=== PATIENT | male | born 1975 | race Caucasian/White ===

== ENCOUNTER 2024-12-25 18:39 | Emergency (ER) | payer OTHER ==
[~2024-12-25] VITALS: Ht 165.1 cm; Wt 70.0 kg
[2024-12-25 18:41] VITALS: O2SAT 97
[2024-12-25] MEDS: SODIUM CHLORIDE 0.9% (SEPSIS BOLUS) IV ONE (19:08)
[2024-12-25] MEDS: DEXTROSE 50% WATER 50ML SYRINGE IV ONE (19:08)
[2024-12-25] MEDS: CEFTRIAXONE 1GM/50ML 50 ML IV ONE (19:12)
[2024-12-25 19:51] LABS: BASOPHILS % 0.6 % (0.0-2.0); EOSINOPHILS % 0.7 % (0.0-5.0); HEMATOCRIT. 34.2 % (42.0-52.0); HEMOGLOBIN. 11.1 g/dL (14.0-18.0); LYMPHOCYTES % 22.3 % (20.0-50.0); MEAN PLATELET VOLUME 8.6 fl (7.4-10.4); MONOCYTES % 13.6 % (2.0-8.0); NEUTROPHILS % 62.8 % (40.0-76.0); PLATELET 185 x1000/uL (130-400); RED BLOOD CELL COUNT 3.67 mill/uL (4.7-6.1); RED CELL DISTRIBUTION WIDTH 17.8 % (11.6-14.6)
[2024-12-25 20:00] LABS: TROPONIN I HIGH SENSITIVITY 8 ng/L (3.0-53)
[2024-12-25 20:01] LABS: CREATININE 3.3 mg/dL (0.6-1.3); UREA NITROGEN BLOOD 75 mg/dL (9-23)
[2024-12-25 20:03] LABS: ASPARTATE AMINOTRANSFERASE 55 IU/L (<34); BILIRUBIN DIRECT 0.2 mg/dL (<=3.0)
[2024-12-25 20:04] LABS: BILIRUBIN TOTAL 0.4 mg/dL (0.1-1.0); PROTEIN TOTAL 5.9 g/dL (6.0-8.3)
[2024-12-25 20:12] LABS: INR 1.0
[2024-12-25] MEDS: ACETAMINOPHEN 325MG TABLET PO ONE (20:50)
[2024-12-25 21:31] LABS: CLARITY URINE CLEAR (CLEAR); COLOR URINE YELLOW (YELLOW); GLUCOSE URINE 3+ (NEGATIVE); KETONES URINE NEGATIVE (NEGATIVE); OCCULT BLOOD URINE NEGATIVE (NEGATIVE); PH URINE 5.5 (4.5-8.0); PROTEIN URINE 2+ (NEGATIVE); SPECIFIC GRAVITY URINE 1.020 (1.005-1.030)
[2024-12-25 21:32] LABS: LEUKOCYTE ESTERASE URINE NEGATIVE (NEGATIVE); NITRITE URINE NEGATIVE (NEGATIVE); UROBILINOGEN URINE 0.2 E.U./dL (0.2-1.0)
[2024-12-25 21:41] LABS: TROPONIN I HIGH SENSITIVITY 8 ng/L (3.0-53)
[2024-12-25 21:44] LABS: BACTERIA URINE 1+; RBC URINE NONE SEEN /hpf (0-2); SQUAMOUS EPITHELIAL CELL URINE RARE /lpf (RARE/1+); WBC URINE 0-2 /hpf (0-2)
[2024-12-26 00:13] VITALS: BP 115/73; PULSE 79; RESP 19; TEMP 36.8; O2SAT 97
== END 2024-12-26 00:28 | disposition short-term general hospital (02) ==
LOC: ER 18:39 → EDBEDREQ 18:55 → ER 12-26 00:28 → CMPBEDREQ 12-26 19:33
DX: N17.9 Acute kidney failure, unspecified (principal); E11.649 Type 2 diabetes mellitus with hypoglycemia without coma; R07.9 Chest pain, unspecified
CPT/HCPCS: 80076; 80048; 81003; 82962; 83605; 83690; 85025; 85610; 87040; 87086; 84484; 36415; 84145; 71045; 93005; 96365; 99291; J0696; Z7610